=== PATIENT | female | born 1950 | race Caucasian/White ===

== ENCOUNTER 2020-05-06 09:59 | Observation (INO) | payer BC ==
--- NOTE | 2020-05-06 10:03 | PDOC ---
History of Present Illness - General Chief Complaint: Shortness of Breath Stated Complaint: SHORT OF BREATH Time Seen by Provider: 05/06/20 10:01 - History of Present Illness Initial Comments: 05/06/20 10:05 69yo female with pmhx of hypertension, dm, and hld presents ambulatory from Dr. Ferro office for eval of reyna. Pt states she has felt depression despite citalopram since November when her had a cva. States over the past 2 months she has felt increasing fatigue, reyna, depression and episodes of anxiety/panic attacks. Pt states on Wednesday her was at [facility] for a cardiac cath/stent placement and when she was walking to the [facility] she had to stop numerous times to catch her breath and sit down because of sob and fatigue. States she did feel a "twinge" of chest pressure during the walk and has experienced that when she goes up stairs. States on Wednesday she did become clammy with the REYNA. Pt denies leg swelling or calf cramping. Pt with pulse ox 86-97% on RA during exam. Pt denies abd pain. No n/v/d. States she has had a dry cough, but thinks it is secondary to allergies. States she has been q Keraderm, but has seen her daughter who recently travelled to [place] and also works for [employer]- however her daughter does not have covid symptoms. Pt states she saw her PMD this am for the REYNA who sent her to the ER for further eval. States she does not follow with cards, but requests Dr. Danielle as cards (he is her husbands cards). PMHx: HTN, obesity, hld, dm, depression/anxiety, asthma/rad Pshx: L knee sx, L inguinal hernia repair All: barbiturates Past History - Medical History Allergies/Adverse Reactions: Allergies Allergy/AdvReac Type Severity Reaction Status Date / Time Barbiturates Allergy Verified 05/06/20 11:53 Home Medications: Ambulatory Orders Atorvastatin Ca [Lipitor] 10 mg PO DAILY 05/06/20 Citalopram Hydrobromide [Citalopram HBr] 10 mg PO DAILY 05/06/20 Anemia: No Asthma: No (REACTIVE AIRWAY-USES INHALER WHEN SHE HAS COLD) Cancer: No Cardiac Disorders: No CVA: No COPD: No CHF: No Dementia: No Diabetes: No GI Disorders: No Disorders: No HTN: Yes Hypercholesterolemia: Yes Liver Disease: No Psychiatric Problems: Yes (DEPRESSION/PANIC ATTACKS) Seizures: No Thyroid Disease: No - Surgical History Abdominal Surgery: Yes (LEFT INGUINAL HERNIA REPAIR 1998) Appendectomy: No Cardiac Surgery: No Cholecystectomy: No Lung Surgery: No Neurologic Surgery: No Orthopedic Surgery: No - Psycho-Social/Smoking History Smoking History: Former smoker Have you smoked in the past 12 months: No Number of Cigarettes Smoked Daily: 10 If you are a former smoker, when did you quit?: 1970S Review of Systems - Review of Systems Able to Perform ROS?: Yes Is the patient limited Macedonian proficient: No Constitutional: Yes: Weakness. No: Chills, Fever, Night Sweats, Unintentional Wgt. Loss HEENTM: No: Nose Congestion, Throat Pain Respiratory: Yes: Cough, Shortness of Breath, SOB with Exertion. No: Wheezing, Productive cough Cardiac (ROS): Yes: Chest Pain. No: Edema, Lightheadedness, Palpitations, Syncope ABD/GI: No: Diarrhea, Nausea, Vomiting, Abdominal cramping : No: Burning Musculoskeletal: No: Back Pain Integumentary: No: Rash Neurological: No: Headache, Numbness, Paresthesia, Tingling, Weakness Psychiatric: Yes: Anxiety, Depression, Stressors All Other Systems: Reviewed and Negative *Physical Exam - Vital Signs 05/06/20 11:58 Selected Entries 05/06/20 05/06/20 10:45 11:00 Pulse Rate 62 Respiratory 14 Rate Respiratory Non-Labored Effort Blood Pressure 144/80 [Right Arm] Blood Pressure Supine Position [Right Arm] O2 Sat by Pulse 100 Oximetry (%) - Physical Exam General Appearance: Yes: Nourished, Appropriately Dressed, Mild Distress (mild coversational dyspnea) HEENT: positive: EOMI, Normal Voice Neck: positive: Supple Respiratory/Chest: positive: Lungs Clear, Normal Breath Sounds, Respiratory Distress (mild conversational dyspnea). negative: Chest Tender Cardiovascular: positive: Regular Rhythm, Regular Rate, S1, S2. negative: Edema Gastrointestinal/Abdominal: positive: Soft. negative: Guarding, Rebound, Tenderness Musculoskeletal: positive: Normal Inspection. negative: Decreased Range of Motion Extremity: positive: Normal Capillary Refill, Normal Inspection, Normal Range of Motion. negative: Pedal Edema, Swelling, Calf Tenderness Integumentary: positive: Normal Color, Dry, Warm Neurologic: positive: Fully Oriented, Alert, Normal Response, Other (anxious appearing) Heart Score/ECG Review - ECG Intrepretation Comment:: 05/06/20 10:35 sinus at 62, nl axis, pacs, nl interval, no acute st/t wave findings ED Treatment Course - LABORATORY CBC & Chemistry Diagram: 05/06/20 10:50 05/06/20 11:00 Medical Decision Making - Medical Decision Making 05/06/20 10:36 a/p: 69yo female with reyna/episodes of chest discomfort -given hx of dm, htn, hld concern for ACS -no fevers, nonproductive cough, less suspicion for pna or covid -will send covid swab given daughters contact -will send labs, place on 2L nc for comfort and O2 sat >94% -ekg, cxr -monitoring specialist -will place consult to Dr. Danielle -pt will need obs vs admission for further eval 05/06/20 11:58 trop neg cxr shows elevated L hemidiaphragm, cannot r/o superimposed infiltrates will order ct chest 05/06/20 12:23 pt updated microblog sent to [facility] for admission 05/06/20 12:24 echo reviewed normal ef, impaired relaxation on echo normal rv 05/06/20 12:27 case discussed with Mirlande Hi who accepts pt to service Discharge - Discharge Information Problems reviewed: Yes Clinical Impression/Diagnosis: Dyspnea on exertion Condition: Fair - Admission Yes - Follow up/Referral Referrals: Gino Ferro MD [Primary Care Provider] - - Patient Discharge Instructions - Post Discharge Activity
--- NOTE | 2020-05-06 11:16 | EKG ---
Test Reason : Blood Pressure : / mmHG Vent. Rate : 062 BPM Atrial Rate : 062 BPM P-R Int : 170 ms QRS Dur : 090 ms QT Int : 458 ms P-R-T Axes : 044 003 070 degrees QTc Int : 464 ms SINUS RHYTHM WITH PREMATURE ATRIAL COMPLEXES OTHERWISE NORMAL ECG NO PREVIOUS ECGS AVAILABLE Confirmed by YIN TRIPP MD ([id number]) on 05/06/2020 11:15:26 AM Referred By: ROSE MARIE MEJIA Confirmed By:YIN TRIPP MD
[2020-05-06 11:39] LABS: BASO % 1.2 % (0-2.0); EOS % 4.4 % (0-4.5); HEMOGLOBIN 12.1 GM/dl (10.7-15.3); LYMPH % 23.3 % (8-40); MCH 27.9 pg (25.7-33.7); MCHC 33.4 g/dl (32.0-36.0); MEAN CELL VOLUME 83.5 fl (80-96); MEAN PLT VOLUME 8.5 fl (7.5-11.1); MONO % 5.3 % (3.8-10.2); NEUT % 65.8 % (42.8-82.8); PLATELET COUNT 251 K/MM3 (134-434); RBC 4.32 M/mm3 (3.60-5.2); RDW 13.4 % (11.6-15.6); WHITE BLOOD COUNT 5.6 K/mm3 (4.0-10.8)
[2020-05-06 11:44] LABS: ACTIVATED PTT 27.2 SECONDS (25.2-36.5)
[2020-05-06 11:46] LABS: BILIRUBIN,TOTAL 0.6 mg/dl (0.2-1); CALCIUM 8.8 mg/dl (8.5-10); CREATININE 0.8 mg/dl (0.55-1.3); POTASSIUM 3.1 mmol/L (3.5-5.1)
[2020-05-06 11:49] LABS: INR 1.15 (0.82-1.09); PROTHROMBIN TIME (PATIENT) 12.8 SEC (10.2-13.0)
[2020-05-06 12:13] LABS: VENOUS BASE EXCESS 4.3 mmol/L (-2-2); VENOUS O2 SATURATION 53.6 % (70-80); VENOUS PCO2 48.3 mmHg (38-52); VENOUS PH 7.409 (7.310-7.410)
--- NOTE | 2020-05-06 12:14 | ECHO ---
Name: TIMMINS, FRANK Exam:Adult Echocardiogram Study Date: 05/06/2020 11:12 AM Age: 69 yrs Reason For Study: CHEST HEAVINESS Height: 64 in Weight: 201 lb BSA: 2.0 m2 Doppler Measurements & Calculations MV E max brooke: 111.8 cm/sec MV A max brooke: 150.0 cm/sec MV dec slope: 537.9 cm/sec2 MV E/A: 0.75 Ao V2 max: 157.5 cm/sec LV V1 max P.9 mmHg Ao max P.9 mmHg LV V1 max: 68.4 cm/sec PA V2 max: 100.8 cm/sec PA max P.1 mmHg Procedure Study Quality: Technically suboptimal. Left Ventricle The left ventricular size, thickness and function are normal. The left ventricular ejection fraction is normal. Ejection Fraction = 55-60%. The transmitral spectral Doppler flow pattern is suggestive of im paired LV relaxation. Right Ventricle The right ventricle is normal in size and function. Atria Normal left and right atrial size and function. Mitral Valve The mitral valve is grossly normal. There is no mitral regurgitation noted. Tricuspid Valve The tricuspid valve is not well visualized, but is grossly normal. No tricuspid regurgitation. Aortic Valve The aortic valve is normal in structure and function. Pulmonic Valve The pulmonic valve is not well visualized. Great Vessels The aortic root is not well visualized. Pericardium/Pleura There is no pericardial effusion. Interpretation Summary LV: Normal size and systolic function,EF 55-60%, impaired relaxation RV: Normal No significany valvular dysfunction. Aminata Townsend 05/06/2020 12:13 PM
[2020-05-06 12:19] LABS: N-TERMINAL BNP 83.8 pg/ml (5-125)
[2020-05-06] MEDS ORDERED: ASPIRIN 81 MG CHEWABLE TABLETS PO ONE (12:24)
[2020-05-06] MEDS ORDERED: ASPIRIN 81 MG CHEWABLE TABLETS ONE (12:44)
[2020-05-06 13:06] LABS: EPITHELIAL CELLS RARE /hpf
--- NOTE | 2020-05-06 13:19 | HP ---
CHIEF COMPLAINT: Shortness of breath PCP: Dr. Malhotra Cardiology: Dr. Danielle HISTORY OF PRESENT ILLNESS: 69 year-old female with a PMH significant for HTN, HLD, reactive airway disease, and depression/anxiety. Patient presented to the ED for evaluation of worsening fatigue, SOB, and RUIZ. She has been under increased stress since November 2019 when her suffered a CVA. Over the past 2 months she has felt increasing fatigue, RUIZ, depression and panic attacks. Over the past week, however, the symptoms have progressed. She has been unable to walk more than a few steps without becoming SOB and having to sit down. She went for a walk with her daughter and had to be driven home. Over the past week she has experienced chest tightness and clamminess on exertion. She denies orthopnea, paroxysmal nocturnal dyspnea, lower extremity edema. ER course was notable for: (1) K 3.1 Recent Travel: Travels frequently between home and [employer] [place], most recently last weekend PAST MEDICAL HISTORY: Hypertension Hyperlipidemia Reactive airway disease Depression/anxiety PAST SURGICAL HISTORY: Inguinal hernia repair 1998 Social History: lives with and 24 year-old daughter who works in [employer] every day Smoking: quit 50 years ago Alcohol: occasional Drugs: no Allergies Barbiturates Allergy (Verified 05/06/20 11:53) FAMILY HX OF P[place]RIA HOME MEDICATIONS: Home Medications Medication Instructions Recorded Atorvastatin Ca [Lipitor] 10 mg PO DAILY 05/06/20 Citalopram Hydrobromide 10 mg PO DAILY 05/06/20 [Citalopram HBr] REVIEW OF SYSTEMS CONSTITUTIONAL: Absent: fever, chills, diaphoresis, generalized weakness, malaise, loss of appetite, weight change HEENT: Absent: rhinorrhea, nasal congestion, throat pain, throat swelling, difficulty swallowing, mouth swelling, ear pain, eye pain, visual changes CARDIOVASCULAR: Absent: chest pain, syncope, palpitations, irregular heart rate, lightheadedness, peripheral edema RESPIRATORY: Absent: cough, shortness of breath, dyspnea with exertion, orthopnea, wheezing, stridor, hemoptysis GASTROINTESTINAL: Absent: abdominal pain, abdominal distension, nausea, vomiting, diarrhea, constipation, melena, hematochezia GENITOURINARY: Absent: dysuria, frequency, urgency, hesitancy, hematuria, flank pain, genital pain MUSCULOSKELETAL: Absent: myalgia, arthralgia, joint swelling, back pain, neck pain SKIN: Absent: rash, itching, pallor HEMATOLOGIC/IMMUNOLOGIC: Absent: easy bleeding, easy bruising, lymphadenopathy, frequent infections ENDOCRINE: Absent: unexplained weight gain, unexplained weight loss, heat intolerance, cold intolerance NEUROLOGIC: Absent: headache, focal weakness or paresthesias, dizziness, unsteady gait, seizure, mental status changes, bladder or bowel incontinence PSYCHIATRIC: Absent: anxiety, depression, suicidal or homicidal ideation, hallucinations. PHYSICAL EXAMINATION Vital Signs - 24 hr 05/06/20 05/06/20 05/06/20 10:00 10:45 11:00 Temperature 98.5 F Pulse Rate 62 62 62 Pulse Rate [ 66 Apical] Respiratory 15 14 Rate Blood Pressure 153/83 Blood Pressure 144/80 [Right Arm] O2 Sat by Pulse 94 L 100 99 Oximetry (%) 05/06/20 05/06/20 11:45 12:30 Temperature Pulse Rate 62 Pulse Rate [ 55 L Apical] Respiratory 14 Rate Blood Pressure Blood Pressure 150/76 [Right Arm] O2 Sat by Pulse 98 98 Oximetry (%) GENERAL: Awake, alert, and fully oriented, in no acute distress. HEAD: Normal with no signs of trauma. EYES: Pupils equal, round and reactive to light, extraocular movements intact, sclera anicteric, conjunctiva clear. No lid lag. EARS, NOSE, THROAT: Ears normal, nares patent, oropharynx clear without exudates. Moist mucous membranes. NECK: Normal range of motion, supple without lymphadenopathy, JVD, or masses. LUNGS: Breath sounds equal, clear to auscultation bilaterally. No wheezes, and no crackles. No accessory muscle use. HEART: Regular rate and rhythm, normal S1 and S2 without murmur, rub or gallop. ABDOMEN: Soft, nontender, not distended, normoactive bowel sounds, no guarding, no rebound, no masses. No hepatomegaly or splenomegaly. MUSCULOSKELETAL: Normal range of motion at all joints. No bony deformities or tenderness. No CVA tenderness. UPPER EXTREMITIES: 2+ pulses, warm, well-perfused. No cyanosis. No clubbing. No peripheral edema. LOWER EXTREMITIES: 2+ pulses, warm, well-perfused. No calf tenderness. No peripheral edema. NEUROLOGICAL: Cranial nerves II-XII intact. Normal speech. Normal gait. PSYCHIATRIC: Cooperative. Good eye contact. Appropriate mood and affect. SKIN: Warm, dry, normal turgor, no rashes or lesions noted, normal capillary refill. Laboratory Results - last 24 hr 05/06/20 05/06/20 05/06/20 10:50 10:50 10:50 WBC 5.6 RBC 4.32 Hgb 12.1 Hct 36.0 MCV 83.5 MCH 27.9 MCHC 33.4 RDW 13.4 Plt Count 251 MPV 8.5 Absolute Neuts (auto) 3.7 Neutrophils % 65.8 Lymphocytes % 23.3 Monocytes % 5.3 Eosinophils % 4.4 Basophils % 1.2 PT with INR 12.8 INR 1.15 PTT (Actin FS) 27.2 VBG pH POC VBG pCO2 POC VBG pO2 VBG HCO3 VBG O2 Sat (Sonja) VBG Base Excess Sodium Potassium Chloride Carbon Dioxide Anion Gap BUN Creatinine Est GFR (CKD-EPI)AfAm Est GFR (CKD-EPI)NonAf Random Glucose Lactic Acid Calcium Magnesium Total Bilirubin AST ALT Alkaline Phosphatase Creatine Kinase Troponin I < 0.03 B-Natriuretic Peptide Total Protein Albumin TSH Urine Color Urine Appearance Urine pH Urine Protein Urine Glucose (UA) Urine Ketones Urine Blood Urine Nitrite Urine Bilirubin Urine Urobilinogen Ur Leukocyte Esterase Urine RBC Urine WBC Ur Transition Epith Cell Urine Bacteria 05/06/20 05/06/20 05/06/20 11:00 11:00 11:00 WBC RBC Hgb Hct MCV MCH MCHC RDW Plt Count MPV Absolute Neuts (auto) Neutrophils % Lymphocytes % Monocytes % Eosinophils % Basophils % PT with INR INR PTT (Actin FS) VBG pH 7.409 POC VBG pCO2 48.3 POC VBG pO2 28.5 VBG HCO3 29.9 H VBG O2 Sat (Sonja) 53.6 L VBG Base Excess 4.3 H Sodium 137 Potassium 3.1 L Chloride 100 Carbon Dioxide 29 Anion Gap 8 BUN 22.0 H Creatinine 0.8 Est GFR (CKD-EPI)AfAm 87.18 Est GFR (CKD-EPI)NonAf 75.22 Random Glucose 94 Lactic Acid Calcium 8.8 Magnesium 2.0 Total Bilirubin 0.6 AST 16 ALT 14 Alkaline Phosphatase 48 Creatine Kinase 50 Troponin I B-Natriuretic Peptide 83.8 Total Protein 7.0 Albumin 4.0 TSH 1.63 Urine Color Yellow Urine Appearance Clear Urine pH 7.5 Urine Protein Negative Urine Glucose (UA) Negative Urine Ketones Negative Urine Blood Negative Urine Nitrite Positive H Urine Bilirubin Negative Urine Urobilinogen 0.2 Ur Leukocyte Esterase Trace H Urine RBC No Result Required. Urine WBC 2-5 Ur Transition Epith Cell Rare Urine Bacteria Moderate 05/06/20 05/06/20 11:00 11:00 WBC RBC Hgb Hct MCV MCH MCHC RDW Plt Count MPV Absolute Neuts (auto) Neutrophils % Lymphocytes % Monocytes % Eosinophils % Basophils % PT with INR INR PTT (Actin FS) VBG pH POC VBG pCO2 POC VBG pO2 VBG HCO3 VBG O2 Sat (Sonja) VBG Base Excess Sodium Potassium Chloride Carbon Dioxide Anion Gap BUN Creatinine Est GFR (CKD-EPI)AfAm Est GFR (CKD-EPI)NonAf Random Glucose Lactic Acid 1.3 Calcium Magnesium Total Bilirubin AST ALT Alkaline Phosphatase Creatine Kinase Troponin I B-Natriuretic Peptide Total Protein Albumin TSH Cancelled Urine Color Urine Appearance Urine pH Urine Protein Urine Glucose (UA) Urine Ketones Urine Blood Urine Nitrite Urine Bilirubin Urine Urobilinogen Ur Leukocyte Esterase Urine RBC Urine WBC Ur Transition Epith Cell Urine Bacteria ASSESSMENT/PLAN: 69 year-old female with a PMH significant for HTN, HLD, reactive airway disease, and depression/anxiety. Placed on observation for r/o ACS. Chest pain --troponin neg x 1, two pending --ECG: no acute ischemia --Echo: LV normal, EF 55-60%, impaired relaxation; RV normal; no significant valvular pathology --CXR: CXR: large eventration/hernia, entire stomach and small bowel loops in left lower abdomen previously seen --CT chest: CT chest: no pneumonia, no acute pathology; cholelithiasis; large mass left lobe of thyroid, seen previously in 2018; fluid collection right posterior mediastinum, 7.8cm x 3.2cm, increased since 2018, undertain etiology --ASA. Lipitor --telemetry monitoring --cardiology consult Hypertension --continue triamterene/HCTZ Reactive airway disease --stable Depression/anxiety --continue citalopram Hypomagnesemia --replete Hypokalemia --replete FEN Fluids: PO intake adequate Electrolytes: replete as indicated Nutrition: low sodium DVT prophylaxis: subq heparin Physical therapy Dispo: continues to require inpatient care. Full code. Visit type - Emergency Visit Emergency Visit: Yes ED Registration Date: 05/06/20 Care time: The patient presented to the Emergency Department on the above date and was hospitalized for further evaluation of their emergent condition. - New Patient This patient is new to me today: Yes Date on this admission: 05/07/20 - Critical Care Critical Care patient: No
--- NOTE | 2020-05-06 13:33 | CON.CARD ---
Cardiology Consult (text) - Consultation Consultation Note: cc: sob hpi: 69 f hx htn, hld, anxiety, depression, sent from pmd office for sob. Past 1-2 mos pt has noticed sob/fatigue on exertion, was worse over last few days. No orthopnea, pnd, le edema, cp, palps, dizzy loc. No hx hrt dz. pmh: per hpi psh: knee surgery social: no tob fam: no premature cad, scd ros: per hpi; all others nl meds: Home Medications Medication Instructions Recorded Atorvastatin Ca [Lipitor] 10 mg PO DAILY 05/06/20 Citalopram Hydrobromide 10 mg PO DAILY 05/06/20 [Citalopram HBr] pe: Vital Signs Period Temp Pulse Resp BP Sys/Koch Pulse Ox Last 24 Hr 98.5 F 55-68 14-15 144-153/76-83 94-100 nad no jvd rrr s1s2 no mrg cta bl nl eff aao3 no le e/c/c abd nt nd pos bs no jaundice diaphoresis pos dp pt no carotid bruits Laboratory Last Values WBC 5.6 K/mm3 (4.0-10.8) 05/06/20 10:50 RBC 4.32 M/mm3 (3.60-5.2) 05/06/20 10:50 Hgb 12.1 GM/dl (10.7-15.3) 05/06/20 10:50 Hct 36.0 % (32.4-45.2) 05/06/20 10:50 MCV 83.5 fl (80-96) 05/06/20 10:50 MCH 27.9 pg (25.7-33.7) 05/06/20 10:50 MCHC 33.4 g/dl (32.0-36.0) 05/06/20 10:50 RDW 13.4 % (11.6-15.6) 05/06/20 10:50 Plt Count 251 K/MM3 (134-434) 05/06/20 10:50 MPV 8.5 fl (7.5-11.1) 05/06/20 10:50 Absolute Neuts (auto) 3.7 K/mm3 05/06/20 10:50 Neutrophils % 65.8 % (42.8-82.8) 05/06/20 10:50 Lymphocytes % 23.3 % (8-40) 05/06/20 10:50 Monocytes % 5.3 % (3.8-10.2) 05/06/20 10:50 Eosinophils % 4.4 % (0-4.5) 05/06/20 10:50 Basophils % 1.2 % (0-2.0) 05/06/20 10:50 PT with INR 12.8 SEC (10.2-13.0) 05/06/20 10:50 INR 1.15 (0.82-1.09) 05/06/20 10:50 PTT (Actin FS) 27.2 SECONDS (25.2-36.5) 05/06/20 10:50 VBG pH 7.409 (7.310-7.410) 05/06/20 11:00 POC VBG pCO2 48.3 mmHg (38-52) 05/06/20 11:00 POC VBG pO2 28.5 mmHg (28-48) 05/06/20 11:00 VBG HCO3 29.9 mmol/L (23-29) H 05/06/20 11:00 VBG O2 Sat (Sonja) 53.6 % (70-80) L 05/06/20 11:00 VBG Base Excess 4.3 mmol/L (-2-2) H 05/06/20 11:00 Sodium 137 mmol/L (136-145) 05/06/20 11:00 Potassium 3.1 mmol/L (3.5-5.1) L 05/06/20 11:00 Chloride 100 mmol/L (98-107) 05/06/20 11:00 Carbon Dioxide 29 mmol/L (21-32) 05/06/20 11:00 Anion Gap 8 MMOL/L (8-16) 05/06/20 11:00 BUN 22.0 mg/dl (7-18) H 05/06/20 11:00 Creatinine 0.8 mg/dl (0.55-1.3) 05/06/20 11:00 Est GFR (CKD-EPI)AfAm 87.18 05/06/20 11:00 Est GFR (CKD-EPI)NonAf 75.22 05/06/20 11:00 Random Glucose 94 mg/dl (74-106) 05/06/20 11:00 Lactic Acid 1.3 mmol/L (0.4-2.0) 05/06/20 11:00 Calcium 8.8 mg/dl (8.5-10) 05/06/20 11:00 Magnesium 2.0 mg/dL (1.8-2.4) 05/06/20 11:00 Total Bilirubin 0.6 mg/dl (0.2-1) 05/06/20 11:00 AST 16 U/L (15-37) 05/06/20 11:00 ALT 14 U/L (13-61) 05/06/20 11:00 Alkaline Phosphatase 48 U/L (45-117) 05/06/20 11:00 Creatine Kinase 50 U/L (26-192) 05/06/20 11:00 Troponin I < 0.03 ng/ml (0.00-0.05) 05/06/20 10:50 B-Natriuretic Peptide 83.8 pg/ml (5-125) 05/06/20 11:00 Total Protein 7.0 g/dl (6.4-8.2) 05/06/20 11:00 Albumin 4.0 g/dl (3.4-5.0) 05/06/20 11:00 TSH 1.63 uIU/ml (0.358-3.74) 05/06/20 11:00 TSH Cancelled 05/06/20 11:00 Urine Color Yellow 05/06/20 11:00 Urine Appearance Clear 05/06/20 11:00 Urine pH 7.5 (4.5-8) 05/06/20 11:00 Urine Protein Negative (NEGATIVE) 05/06/20 11:00 Urine Glucose (UA) Negative (NEGATIVE) 05/06/20 11:00 Urine Ketones Negative (NEGATIVE) 05/06/20 11:00 Urine Blood Negative (NEGATIVE) 05/06/20 11:00 Urine Nitrite Positive (NEGATIVE) H 05/06/20 11:00 Urine Bilirubin Negative (NEGATIVE) 05/06/20 11:00 Urine Urobilinogen 0.2 (0.2-1.0) 05/06/20 11:00 Ur Leukocyte Esterase Trace (NEGATIVE) H 05/06/20 11:00 Urine RBC No Result Required. 05/06/20 11:00 Urine WBC 2-5 (NEGATIVE) 05/06/20 11:00 Ur Transition Epith Cell Rare /hpf 05/06/20 11:00 Urine Bacteria Moderate /hpf (NEGATIVE) 05/06/20 11:00 ecg: sr, pac, nl intervals, no ischemic changes cxr: no chf echo 04/2020: nl lv/rv, no sig valve path a/p: 69 f hx htn, hld, anxiety, depression, sent from pmd office for sob. sob, reyna: -no signs chf, acs -bnp wnl -ecg and echo unremarkable -continue john on tele -f/u ct chest to r/o other lung pathology. r/o covid. -will plan for nuclear stress test tomorrow as her symptoms could be anginal equivalent, if benign then no further cardiac testing needed at this time. hld: -cont statin htn: -stable, monitor
[2020-05-06] MEDS ORDERED: MAGNESIUM OXIDE 400 MG TABLET (FP) PO ONE (15:48)
[2020-05-06] MEDS: POTASSIUM CHLORIDE TABS 20 MEQ TABLET.ER (FP) PO SCH ×2 (17:39→22:18)
[2020-05-06 18:01] VITALS: BMI 35.7
[2020-05-06] MEDS: HEPARIN NA (PORCINE) 5,000 UNITS/ML 1ML VIAL SQ SCH (22:18)
[2020-05-07] MEDS: HEPARIN NA (PORCINE) 5,000 UNITS/ML 1ML VIAL SQ SCH ×3 (06:54→21:19)
[2020-05-07 08:12] LABS: BASO % 0.7 % (0-2.0); EOS % 5.9 % (0-4.5); HEMATOCRIT 35.9 % (32.4-45.2); HEMOGLOBIN 11.9 GM/dl (10.7-15.3); LYMPH % 33.9 % (8-40); MCH 27.7 pg (25.7-33.7); MEAN PLT VOLUME 8.5 fl (7.5-11.1); MONO % 6.4 % (3.8-10.2); NEUT % 53.1 % (42.8-82.8); PLATELET COUNT 233 K/MM3 (134-434); RBC 4.28 M/mm3 (3.60-5.2); RDW 13.5 % (11.6-15.6)
[2020-05-07 08:26] LABS: ALBUMIN 3.5 g/dl (3.4-5.0); BILIRUBIN,TOTAL 0.7 mg/dl (0.2-1); CALCIUM 8.5 mg/dl (8.5-10); CREATININE 0.7 mg/dl (0.55-1.3); MAGNESIUM 2.1 mg/dL (1.8-2.4); POTASSIUM 3.6 mmol/L (3.5-5.1); TOT PROT 6.1 g/dl (6.4-8.2)
[2020-05-07] MEDS ORDERED: PT OWN MED DRAWER 7, Y5N ONE (09:53)
[2020-05-07] MEDS ORDERED: TRIAMTERENE 50 MG CAPSULE PO SCH (10:00)
--- NOTE | 2020-05-07 10:15 | PN ---
Physical Exam: SUBJECTIVE: Patient seen and examined oob to chair. Feels well. Denies chest pain, palpitations. Has been ambulating around the room with SOB or RUIZ. OBJECTIVE: Vital Signs Period Temp Pulse Resp BP Sys/Koch Pulse Ox Last 24 Hr 97.7 F-98.2 F 51-89 13-18 117-157/58-80 95-100 GENERAL: The patient is awake, alert, and fully oriented, in no acute distress. LUNGS: Breath sounds equal, clear to auscultation bilaterally, no wheezes, no crackles, no accessory muscle use. HEART: Regular rate and rhythm, S1, S2 ABDOMEN: Soft, nontender, nondistended, normoactive bowel sounds EXTREMITIES: 2+ pulses, warm, well-perfused, no edema. NEUROLOGICAL: Cranial nerves II through XII grossly intact. Normal speech Laboratory Results - last 24 hr 05/06/20 05/06/20 05/06/20 10:50 10:50 10:50 WBC 5.6 RBC 4.32 Hgb 12.1 Hct 36.0 MCV 83.5 MCH 27.9 MCHC 33.4 RDW 13.4 Plt Count 251 MPV 8.5 Absolute Neuts (auto) 3.7 Neutrophils % 65.8 Lymphocytes % 23.3 Monocytes % 5.3 Eosinophils % 4.4 Basophils % 1.2 PT with INR 12.8 INR 1.15 PTT (Actin FS) 27.2 VBG pH POC VBG pCO2 POC VBG pO2 VBG HCO3 VBG O2 Sat (Sonja) VBG Base Excess Sodium Potassium Chloride Carbon Dioxide Anion Gap BUN Creatinine Est GFR (CKD-EPI)AfAm Est GFR (CKD-EPI)NonAf Random Glucose Lactic Acid Calcium Magnesium Total Bilirubin AST ALT Alkaline Phosphatase Creatine Kinase Troponin I < 0.03 B-Natriuretic Peptide Total Protein Albumin Triglycerides Cholesterol Total LDL Cholesterol HDL Cholesterol TSH Urine Color Urine Appearance Urine pH Urine Protein Urine Glucose (UA) Urine Ketones Urine Blood Urine Nitrite Urine Bilirubin Urine Urobilinogen Ur Leukocyte Esterase Urine RBC Urine WBC Ur Transition Epith Cell Urine Bacteria 05/06/20 05/06/20 05/06/20 11:00 11:00 11:00 WBC RBC Hgb Hct MCV MCH MCHC RDW Plt Count MPV Absolute Neuts (auto) Neutrophils % Lymphocytes % Monocytes % Eosinophils % Basophils % PT with INR INR PTT (Actin FS) VBG pH 7.409 POC VBG pCO2 48.3 POC VBG pO2 28.5 VBG HCO3 29.9 H VBG O2 Sat (Sonja) 53.6 L VBG Base Excess 4.3 H Sodium 137 Potassium 3.1 L Chloride 100 Carbon Dioxide 29 Anion Gap 8 BUN 22.0 H Creatinine 0.8 Est GFR (CKD-EPI)AfAm 87.18 Est GFR (CKD-EPI)NonAf 75.22 Random Glucose 94 Lactic Acid Calcium 8.8 Magnesium 2.0 Total Bilirubin 0.6 AST 16 ALT 14 Alkaline Phosphatase 48 Creatine Kinase 50 Troponin I B-Natriuretic Peptide 83.8 Total Protein 7.0 Albumin 4.0 Triglycerides Cholesterol Total LDL Cholesterol HDL Cholesterol TSH 1.63 Urine Color Yellow Urine Appearance Clear Urine pH 7.5 Urine Protein Negative Urine Glucose (UA) Negative Urine Ketones Negative Urine Blood Negative Urine Nitrite Positive H Urine Bilirubin Negative Urine Urobilinogen 0.2 Ur Leukocyte Esterase Trace H Urine RBC No Result Required. Urine WBC 2-5 Ur Transition Epith Cell Rare Urine Bacteria Moderate 05/06/20 05/06/20 05/06/20 11:00 11:00 20:36 WBC RBC Hgb Hct MCV MCH MCHC RDW Plt Count MPV Absolute Neuts (auto) Neutrophils % Lymphocytes % Monocytes % Eosinophils % Basophils % PT with INR INR PTT (Actin FS) VBG pH POC VBG pCO2 POC VBG pO2 VBG HCO3 VBG O2 Sat (Sonja) VBG Base Excess Sodium Potassium Chloride Carbon Dioxide Anion Gap BUN Creatinine Est GFR (CKD-EPI)AfAm Est GFR (CKD-EPI)NonAf Random Glucose Lactic Acid 1.3 Calcium Magnesium Total Bilirubin AST ALT Alkaline Phosphatase Creatine Kinase Troponin I < 0.03 B-Natriuretic Peptide Total Protein Albumin Triglycerides Cholesterol Total LDL Cholesterol HDL Cholesterol TSH Cancelled Urine Color Urine Appearance Urine pH Urine Protein Urine Glucose (UA) Urine Ketones Urine Blood Urine Nitrite Urine Bilirubin Urine Urobilinogen Ur Leukocyte Esterase Urine RBC Urine WBC Ur Transition Epith Cell Urine Bacteria 05/07/20 05/07/20 05/07/20 03:00 03:00 07:24 WBC 5.0 RBC 4.28 Hgb 11.9 Hct 35.9 MCV 84.0 MCH 27.7 MCHC 33.0 RDW 13.5 Plt Count 233 MPV 8.5 Absolute Neuts (auto) 2.7 Neutrophils % 53.1 Lymphocytes % 33.9 Monocytes % 6.4 Eosinophils % 5.9 H Basophils % 0.7 PT with INR INR PTT (Actin FS) VBG pH POC VBG pCO2 POC VBG pO2 VBG HCO3 VBG O2 Sat (Sonja) VBG Base Excess Sodium Potassium Chloride Carbon Dioxide Anion Gap BUN Creatinine Est GFR (CKD-EPI)AfAm Est GFR (CKD-EPI)NonAf Random Glucose Lactic Acid Calcium Magnesium Total Bilirubin AST ALT Alkaline Phosphatase Creatine Kinase 46 Troponin I Cancelled < 0.02 B-Natriuretic Peptide Total Protein Albumin Triglycerides Cholesterol Total LDL Cholesterol HDL Cholesterol TSH Urine Color Urine Appearance Urine pH Urine Protein Urine Glucose (UA) Urine Ketones Urine Blood Urine Nitrite Urine Bilirubin Urine Urobilinogen Ur Leukocyte Esterase Urine RBC Urine WBC Ur Transition Epith Cell Urine Bacteria 05/07/20 07:24 WBC RBC Hgb Hct MCV MCH MCHC RDW Plt Count MPV Absolute Neuts (auto) Neutrophils % Lymphocytes % Monocytes % Eosinophils % Basophils % PT with INR INR PTT (Actin FS) VBG pH POC VBG pCO2 POC VBG pO2 VBG HCO3 VBG O2 Sat (Sonja) VBG Base Excess Sodium 141 Potassium 3.6 Chloride 104 Carbon Dioxide 30 Anion Gap 7 L BUN 16.0 Creatinine 0.7 Est GFR (CKD-EPI)AfAm 102.46 Est GFR (CKD-EPI)NonAf 88.40 Random Glucose 95 Lactic Acid Calcium 8.5 Magnesium 2.1 Total Bilirubin 0.7 AST 13 L ALT 11 L Alkaline Phosphatase 42 L Creatine Kinase Troponin I B-Natriuretic Peptide Total Protein 6.1 L Albumin 3.5 Triglycerides 91 Cholesterol 134 Total LDL Cholesterol 66 HDL Cholesterol 50 TSH 1.71 Urine Color Urine Appearance Urine pH Urine Protein Urine Glucose (UA) Urine Ketones Urine Blood Urine Nitrite Urine Bilirubin Urine Urobilinogen Ur Leukocyte Esterase Urine RBC Urine WBC Ur Transition Epith Cell Urine Bacteria Active Medications Generic Name Dose Route Start Last Admin Trade Name Freq PRN Reason Stop Dose Admin Aspirin 81 mg 05/07/20 10:00 Ecotrin - PO DAILY [facility] Atorvastatin Calcium 10 mg 05/07/20 10:00 Lipitor - PO DAILY [facility] Citalopram Hydrobromide 10 mg 05/07/20 10:00 Celexa - PO DAILY [facility] Heparin Sodium (Porcine) 5,000 unit 05/06/20 22:00 05/07/20 06:54 Heparin - SQ Not Given TID [facility] Ceftriaxone Sodium 1 gm/ 50 mls @ 100 mls/hr 05/07/20 10:15 Dextrose IVPB DAILY [facility] Protocol Triamterene/HCTZ 1 cap 05/07/20 10:00 Dyazide 25/37.5mg PO DAILY [facility] ASSESSMENT/PLAN 69 year-old female with a PMH significant for HTN, HLD, reactive airway disease, and depression/anxiety. Placed on observation for r/o ACS. Chest pain --troponin neg x 3 --Echo: LV normal, EF 55-60%, impaired relaxation; RV normal; no significant valvular pathology --CXR: CXR: large eventration/hernia, entire stomach and small bowel loops in left lower abdomen previously seen --CT chest: CT chest: no pneumonia, no acute pathology; cholelithiasis; large mass left lobe of thyroid, seen previously in 2018; fluid collection right posterior mediastinum, 7.8cm x 3.2cm, increased since 2018, undertain etiology --ASA. Lipitor --telemetry monitoring --seen and evaluated by cardiology: no signs of CHF, ACS, BNP wnl; continue to KULDEEP; plan for nuclear stress as soon as COVID status established Hypertension --continue triamterene/HCTZ Reactive airway disease --stable Depression/anxiety --continue citalopram Hypomagnesemia --replete Hypokalemia --replete COVID --05/06 swab pending FEN Fluids: PO intake adequate Electrolytes: replete as indicated Nutrition: low sodium DVT prophylaxis: subq heparin Physical therapy Dispo: continues to require telemetry observation; nuclear stress when COVID status established; full code. Visit type - Emergency Visit Emergency Visit: Yes ED Registration Date: 05/06/20 Care time: The patient presented to the Emergency Department on the above date and was hospitalized for further evaluation of their emergent condition. - New Patient This patient is new to me today: No - Critical Care Critical Care patient: No
[2020-05-07] MEDS: ASPIRIN COATED 81 MG TABLET.EC PO SCH (10:25)
[2020-05-07] MEDS: CITALOPRAM HYDROBROMIDE 10 MG TABLET PO SCH (10:25)
[2020-05-07] MEDS: ATORVASTATIN CA 10 MG TABLET (FP) PO SCH (10:25)
[2020-05-07] MEDS: TRIAMTERENE AND HCTZ - 37.5 MG/25 MG CAPSULE PO SCH (10:25)
--- NOTE | 2020-05-07 10:27 | PN ---
Progress Note (short form) - Note Progress Note: cc: sob hpi: no chest pain, palps, dizziness, dyspnea Current Medications Generic Name Dose Route Start Last Admin Trade Name Marisa PRN Reason Stop Dose Admin Aspirin 81 mg 05/07/20 10:00 Ecotrin - PO DAILY [facility] Atorvastatin Calcium 10 mg 05/07/20 10:00 Lipitor - PO DAILY [facility] Citalopram Hydrobromide 10 mg 05/07/20 10:00 Celexa - PO DAILY [facility] Heparin Sodium (Porcine) 5,000 unit 05/06/20 22:00 05/07/20 06:54 Heparin - SQ Not Given TID [facility] Ceftriaxone Sodium 1 gm/ 50 mls @ 100 mls/hr 05/07/20 10:15 Dextrose IVPB DAILY [facility] Protocol Triamterene/HCTZ 1 cap 05/07/20 10:00 Dyazide 25/37.5mg PO DAILY [facility] Vital Signs Period Temp Pulse Resp BP Sys/Koch Pulse Ox Last 24 Hr 97.7 F-98.2 F 51-89 13-18 117-157/58-80 95-100 nad no jvd rrr s1s2 no mrg cta bl nl eff aao3 no le e/c/c abd nt nd pos bs no jaundice diaphoresis pos dp pt no carotid bruits ecg: sr, pac, nl intervals, no ischemic changes cxr: no chf echo 04/2020: nl lv/rv, no sig valve path tele: sinus lori a/p: 69 f hx htn, hld, anxiety, depression, sent from pmd office for sob. sob, reyna: -no signs chf, acs -bnp wnl -ecg and echo unremarkable -continue john on tele - r/o covid. -will plan for nuclear stress test today pending COVID testing as her symptoms could be anginal equivalent, if benign then no further cardiac testing needed at this time. hld: -cont statin htn: -stable, monitor
[2020-05-07] MEDS ORDERED: cefTRIAXone SODIUM 1 GM VIAL ONE (12:31)
[2020-05-07] MEDS ORDERED: DEXTROSE 5%-WATER - 50 ML IVPB ONE (12:32)
[2020-05-07] MEDS: CEFTRIAXONE 1 GM in DEXTROSE 5%-WATER - 50 ML IVPB SCH (12:44)
[2020-05-08] MEDS: HEPARIN NA (PORCINE) 5,000 UNITS/ML 1ML VIAL SQ SCH ×2 (06:42→21:29)
[2020-05-08] MEDS ORDERED: DEXTROSE 5%-WATER - 50 ML IVPB ONE (09:45)
[2020-05-08] MEDS ORDERED: cefTRIAXone SODIUM 1 GM VIAL ONE (09:45)
[2020-05-08] MEDS: ASPIRIN COATED 81 MG TABLET.EC PO SCH (09:52)
[2020-05-08] MEDS: ATORVASTATIN CA 10 MG TABLET (FP) PO SCH (09:52)
[2020-05-08] MEDS: CEFTRIAXONE 1 GM in DEXTROSE 5%-WATER - 50 ML IVPB SCH (10:00)
[2020-05-08] MEDS: CITALOPRAM HYDROBROMIDE 10 MG TABLET PO SCH (10:22)
--- NOTE | 2020-05-08 10:41 | PN ---
Progress Note (short form) - Note Progress Note: cc: sob hpi: no chest pain, palps, dizziness, dyspnea currently, walked in the [place] yesterday with dyspnea on exertion. Current Medications Generic Name Dose Route Start Last Admin Trade Name Marisa PRN Reason Stop Dose Admin Aspirin 81 mg 05/07/20 10:00 05/08/20 09:52 Ecotrin - PO 81 mg DAILY [facility] Administration Atorvastatin Calcium 10 mg 05/07/20 10:00 05/08/20 09:52 Lipitor - PO 10 mg DAILY [facility] Administration Citalopram Hydrobromide 10 mg 05/07/20 10:00 05/08/20 10:22 Celexa - PO 10 mg DAILY [facility] Administration Heparin Sodium (Porcine) 5,000 unit 05/06/20 22:00 05/07/20 21:19 Heparin - SQ 5,000 unit TID [facility] Administration Ceftriaxone Sodium 1 gm/ 50 mls @ 100 mls/hr 05/07/20 10:15 05/07/20 12:44 Dextrose IVPB 100 mls/hr DAILY [facility] Administration Protocol Triamterene/HCTZ 1 cap 05/07/20 10:00 05/07/20 10:25 Dyazide 25/37.5mg PO 1 cap DAILY [facility] Administration Vital Signs Period Temp Pulse Resp BP Sys/Koch Pulse Ox Last 24 Hr 97.6 F-98.9 F 49-93 18-19 145-157/57-77 95-96 nad no jvd rrr s1s2 no mrg cta bl nl eff aao3 no le e/c/c abd nt nd pos bs no jaundice diaphoresis pos dp pt no carotid bruits ecg: sr, pac, nl intervals, no ischemic changes cxr: no chf echo 04/2020: nl lv/rv, no sig valve path tele: sinus lori a/p: 69 f hx htn, hld, anxiety, depression, sent from pmd office for sob. sob, reyna: -no signs chf, acs -bnp wnl -ecg and echo unremarkable -continue john on tele - r/o covid. -will plan for nuclear stress test pending COVID testing as her symptoms could be anginal equivalent, if benign then no further cardiac testing needed at this time. hld: -cont statin htn: -stable, monitor UTI - on abx per primary
[2020-05-08] MEDS ORDERED: PT OWN MED DRAWER 7, Y5N ONE (10:43)
[2020-05-08] MEDS: TRIAMTERENE AND HCTZ - 37.5 MG/25 MG CAPSULE PO SCH (10:48)
--- NOTE | 2020-05-08 10:51 | PN ---
Physical Exam: SUBJECTIVE: Patient seen and examined at bedside. Walked with in hallway yesterday and became SOB. Last night had a "twinge" in left chest while lying in bed. OBJECTIVE: Vital Signs Period Temp Pulse Resp BP Sys/Koch Pulse Ox Last 24 Hr 97.6 F-98.9 F 49-93 18-19 145-157/57-77 95-96 GENERAL: The patient is awake, alert, and fully oriented, in no acute distress. LUNGS: Breath sounds equal, clear to auscultation bilaterally, no wheezes, no crackles, no accessory muscle use. HEART: Regular rate and rhythm, S1, S2 ABDOMEN: Soft, nontender, nondistended, normoactive bowel sounds EXTREMITIES: 2+ pulses, warm, well-perfused, no edema. NEUROLOGICAL: Cranial nerves II through XII grossly intact. Normal speech Active Medications Generic Name Dose Route Start Last Admin Trade Name Freq PRN Reason Stop Dose Admin Aspirin 81 mg 05/07/20 10:05/08/20 09:52 Ecotrin - PO 81 mg DAILY [facility] Administration Atorvastatin Calcium 10 mg 05/07/20 10:05/08/20 09:52 Lipitor - PO 10 mg DAILY [facility] Administration Citalopram Hydrobromide 10 mg 05/07/20 10:00 05/08/20 10:22 Celexa - PO 10 mg DAILY [facility] Administration Heparin Sodium (Porcine) 5,000 unit 05/06/20 22:00 05/07/20 21:19 Heparin - SQ 5,000 unit TID [facility] Administration Ceftriaxone Sodium 1 gm/ 50 mls @ 100 mls/hr 05/07/20 10:15 05/07/20 12:44 Dextrose IVPB 100 mls/hr DAILY [facility] Administration Protocol Triamterene/HCTZ 1 cap 05/07/20 10:00 05/08/20 10:48 Dyazide 25/37.5mg PO 1 cap DAILY [facility] Administration ASSESSMENT/PLAN: 69 year-old female with a PMH significant for HTN, HLD, reactive airway disease, and depression/anxiety. Placed on observation for r/o ACS. Chest pain --troponin neg x 3 --Echo: LV normal, EF 55-60%, impaired relaxation; RV normal; no significant valvular pathology --CXR: CXR: large eventration/hernia, entire stomach and small bowel loops in left lower abdomen previously seen --CT chest: CT chest: no pneumonia, no acute pathology; cholelithiasis; large mass left lobe of thyroid, seen previously in 2018; fluid collection right posterior mediastinum, 7.8cm x 3.2cm, increased since 2018, uncertain etiology --ASA, Lipitor --telemetry monitoring --seen and evaluated by cardiology: no signs of CHF, ACS, BNP wnl; continue to KULDEEP; plan for nuclear stress as soon as COVID status established Hypertension --continue triamterene/HCTZ Reactive airway disease --stable Depression/anxiety --continue citalopram Hypomagnesemia --replete Hypokalemia --replete COVID --05/06 swab pending FEN Fluids: PO intake adequate Electrolytes: replete as indicated Nutrition: low sodium DVT prophylaxis: subq heparin Physical therapy Dispo: continues to require telemetry observation; nuclear stress when COVID status established; full code. Visit type - Emergency Visit Emergency Visit: Yes ED Registration Date: 05/06/20 Care time: The patient presented to the Emergency Department on the above date and was hospitalized for further evaluation of their emergent condition. - New Patient This patient is new to me today: No - Critical Care Critical Care patient: No
--- NOTE | 2020-05-08 12:24 | EKG ---
Test Reason : Blood Pressure : / mmHG Vent. Rate : 050 BPM Atrial Rate : 050 BPM P-R Int : 160 ms QRS Dur : 092 ms QT Int : 498 ms P-R-T Axes : 019 011 041 degrees QTc Int : 454 ms SINUS BRADYCARDIA OTHERWISE NORMAL ECG WHEN COMPARED WITH ECG OF 06-MAY-2020 10:30, PREMATURE ATRIAL COMPLEXES ARE NO LONGER PRESENT Confirmed by Yanick Cardoso MD ([id number]) on 05/08/2020 12:23:58 PM Referred By: Confirmed By:Yanick Cardoso MD
[2020-05-08] MEDS ORDERED: LORazepam 0.5 MG TABLET PO ONE (12:45)
[2020-05-08] MEDS ORDERED: LOCK ITEM NR ONE (22:19)
[2020-05-09] MEDS: HEPARIN NA (PORCINE) 5,000 UNITS/ML 1ML VIAL SQ SCH ×2 (05:51→17:23)
[2020-05-09] MEDS ORDERED: cefTRIAXone SODIUM 1 GM VIAL ONE (07:48)
[2020-05-09] MEDS ORDERED: DEXTROSE 5%-WATER - 50 ML IVPB ONE (07:48)
[2020-05-09] MEDS ORDERED: PT OWN MED DRAWER 7, Y5N ONE ×2 (07:48→08:05)
[2020-05-09] MEDS: CITALOPRAM HYDROBROMIDE 10 MG TABLET PO SCH ×2 (08:10→16:56)
[2020-05-09] MEDS: TRIAMTERENE AND HCTZ - 37.5 MG/25 MG CAPSULE PO SCH ×2 (08:10→16:56)
[2020-05-09] MEDS: ATORVASTATIN CA 10 MG TABLET (FP) PO SCH ×2 (08:12→16:57)
[2020-05-09] MEDS: ASPIRIN COATED 81 MG TABLET.EC PO SCH ×2 (08:12→16:57)
[2020-05-09] MEDS: CEFTRIAXONE 1 GM in DEXTROSE 5%-WATER - 50 ML IVPB SCH ×2 (08:12→16:57)
[2020-05-09 08:14] VITALS: BP 132/60; TEMP 97.8
[2020-05-09] MEDS ORDERED: REGADENOSON 0.4 MG/5 ML PRE-FILLED SYRINGE IVPUSH ONE ×2 (10:45→11:30)
--- NOTE | 2020-05-09 12:02 | PN ---
Progress Note (short form) - Note Progress Note: cc: sob hpi: no chest pain, palps, dizziness, sob Current Medications Generic Name Dose Route Start Last Admin Trade Name Marisa PRN Reason Stop Dose Admin Aspirin 81 mg 05/07/20 10:00 05/09/20 08:12 Ecotrin - PO 81 mg DAILY [facility] Administration Atorvastatin Calcium 10 mg 05/07/20 10:00 05/09/20 08:12 Lipitor - PO 10 mg DAILY [facility] Administration Citalopram Hydrobromide 10 mg 05/07/20 10:00 05/09/20 08:10 Celexa - PO 10 mg DAILY [facility] Administration Heparin Sodium (Porcine) 5,000 unit 05/06/20 22:00 05/09/20 05:51 Heparin - SQ Not Given TID [facility] Ceftriaxone Sodium 1 gm/ 50 mls @ 100 mls/hr 05/07/20 10:15 05/09/20 08:12 Dextrose IVPB 100 mls/hr DAILY [facility] Administration Protocol Triamterene/HCTZ 1 cap 05/07/20 10:00 05/09/20 08:10 Dyazide 25/37.5mg PO 1 cap DAILY [facility] Administration Vital Signs Period Temp Pulse Resp BP Sys/Koch Pulse Ox Last 24 Hr 97.7 F-98.5 F 49-62 18-19 132-150/55-64 94-95 nad no jvd rrr s1s2 no mrg cta bl nl eff aao3 no le e/c/c abd nt nd pos bs no jaundice diaphoresis pos dp pt no carotid bruits CBC, BMP 05/07/20 07:24 05/07/20 07:24 ecg: sr, pac, nl intervals, no ischemic changes cxr: no chf echo 04/2020: nl lv/rv, no sig valve path a/p: 69 f hx htn, hld, anxiety, depression, sent from pmd office for sob. sob, reyna: -no signs chf, acs -bnp wnl -ecg and echo unremarkable -mibi today, if benign then no further cardiac testing needed at this time. hld: -cont statin htn: -stable, monitor UTI - on abx per primary
--- NOTE | 2020-05-09 14:34 | DS ---
Physical Exam: SUBJECTIVE: Patient seen and examined OBJECTIVE: Vital Signs Period Temp Pulse Resp BP Sys/Koch Pulse Ox Last 24 Hr 97.7 F-98.5 F 52-62 18-19 132-150/55-64 94-95 PHYSICAL EXAM GENERAL: The patient is awake, alert, and fully oriented, in no acute distress. LUNGS: Breath sounds equal, clear to auscultation bilaterally, no wheezes, no crackles, no accessory muscle use. HEART: Regular rate and rhythm, S1, S2 ABDOMEN: Soft, nontender, nondistended, normoactive bowel sounds EXTREMITIES: 2+ pulses, warm, well-perfused, no edema. NEUROLOGICAL: Cranial nerves II through XII grossly intact. Normal speech LABS Laboratory Results - last 24 hr 05/06/20 10:30 COVID-19 (HAIDER) Not detected CBCD WBC 5.0 K/mm3 (4.0-10.8) 05/07/20 07:24 RBC 4.28 M/mm3 (3.60-5.2) 05/07/20 07:24 Hgb 11.9 GM/dl (10.7-15.3) 05/07/20 07:24 Hct 35.9 % (32.4-45.2) 05/07/20 07:24 MCV 84.0 fl (80-96) 05/07/20 07:24 MCHC 33.0 g/dl (32.0-36.0) 05/07/20 07:24 RDW 13.5 % (11.6-15.6) 05/07/20 07:24 Plt Count 233 K/MM3 (134-434) 05/07/20 07:24 MPV 8.5 fl (7.5-11.1) 05/07/20 07:24 CMP Sodium 141 mmol/L (136-145) 05/07/20 07:24 Potassium 3.6 mmol/L (3.5-5.1) 05/07/20 07:24 Chloride 104 mmol/L (98-107) 05/07/20 07:24 Carbon Dioxide 30 mmol/L (21-32) 05/07/20 07:24 Anion Gap 7 MMOL/L (8-16) L 05/07/20 07:24 BUN 16.0 mg/dl (7-18) 05/07/20 07:24 Creatinine 0.7 mg/dl (0.55-1.3) 05/07/20 07:24 Calcium 8.5 mg/dl (8.5-10) 05/07/20 07:24 Total Bilirubin 0.7 mg/dl (0.2-1) 05/07/20 07:24 AST 13 U/L (15-37) L 05/07/20 07:24 ALT 11 U/L (13-61) L 05/07/20 07:24 Alkaline Phosphatase 42 U/L (45-117) L 05/07/20 07:24 Total Protein 6.1 g/dl (6.4-8.2) L 05/07/20 07:24 Albumin 3.5 g/dl (3.4-5.0) 05/07/20 07:24 HOSPITAL COURSE: Date of Admission:05/06/20 Date of Discharge: 05/09/20 Pre hospital course 69 year-old female with a PMH significant for HTN, HLD, reactive airway disease, and depression/anxiety. Patient presented to the ED for evaluation of worsening fatigue, SOB, and RUIZ. She has been under increased stress since November 2019 when her suffered a CVA. Over the past 2 months she has felt increasing fatigue, RUIZ, depression and panic attacks. Over the past week the symptoms have progressed. She has been unable to walk more than a few steps without becoming SOB and having to sit down. She went for a walk with her daughter and had to be driven home. Over the past week she has experienced chest tightness and clamminess on exertion. She denies orthopnea, paroxysmal nocturnal dyspnea, lower extremity edema. ER course (1) K 3.1 Subsequent hospital course 69 year-old female with a PMH significant for HTN, HLD, reactive airway disease, and depression/anxiety. Placed on observation for r/o ACS. Chest pain Shortness of breath --troponin neg x 3; ACS ruled out --ECG: no acute ischemic changes --Echo: LV normal, EF 55-60%, impaired relaxation; RV normal; no significant valvular pathology --Stress mibi: normal lexiscan stress ECG; normal myocardial perfusion, EF 64%; Shortness of breath --CT chest: no pneumonia, no acute pathology; fluid collection right posterior mediastinum, 7.8cm x 3.2cm, increased since 2017, uncertain etiology --pre-post: sats 95% with flat surface ambulation on room air --outpatient followup with PCP/face painter Dr. Ferro Thyroid mass --seen previously in 2018; TSH wnl --outpatient monitoring Hypertension --continue triamterene/HCTZ Reactive airway disease --stable Depression/anxiety --continue citalopram Hypomagnesemia --replete Hypokalemia --replete COVID --05/06 swab pending FEN Fluids: PO intake adequate Electrolytes: replete as indicated Nutrition: low sodium DVT prophylaxis: subq heparin Physical therapy Dispo: continues to require telemetry observation; nuclear stress when COVID status established; full code. Minutes to complete discharge: 35 Discharge Summary Problems reviewed: Yes Reason For Visit: DYSPNEA ON EXERTION Current Active Problems Dyspnea on exertion (Acute) Condition: Improved - Instructions Diet, Activity, Other Instructions: It is recommended you follow up with your primary care provider, Dr. Ferro, within 1-2 weeks of your discharge. Return to the emergency department for any new or worsening symptoms. Referrals: Gino Ferro MD [Primary Care Provider] - 2 Weeks Disposition: HOME - Home Medications Comprehensive Discharge Medication List: Ambulatory Orders Atorvastatin Ca [Lipitor] 10 mg PO DAILY 05/06/20 Citalopram Hydrobromide [Citalopram HBr] 10 mg PO DAILY 05/06/20 This patient is new to me today: No Emergency Visit: Yes ED Registration Date: 05/06/20 Care time: The patient presented to the Emergency Department on the above date and was hospitalized for further evaluation of their emergent condition. Critical Care patient: No - Discharge Referral Referred to [facility] No
[2020-05-09 15:01] VITALS: PULSE 104
== END 2020-05-09 17:25 | disposition home or self-care (01) ==
LOC: FER 09:59 → INTOOBSV 12:25 → FM/S 12:25
PROVIDERS: ADMIT Internal Medicine; ATTEND Nurse Practitioner Acute Care
PROC: 3E033GC Introduction of Other Therapeutic Substance into Peripheral Vein, Percutaneous Approach (ICD-10-PCS; principal; 2020-05-06)
DX: R06.02 Shortness of breath (principal); I10 Essential (primary) hypertension; E78.5 Hyperlipidemia, unspecified; F41.8 Other specified anxiety disorders; Z95.5 Presence of coronary angioplasty implant and graft; E66.9 Obesity, unspecified; Z68.35 Body mass index [BMI] 35.0-35.9, adult; J45.909 Unspecified asthma, uncomplicated; E11.9 Type 2 diabetes mellitus without complications; Z29.9 Encounter for prophylactic measures, unspecified; Z87.891 Personal history of nicotine dependence; R79.9 Abnormal finding of blood chemistry, unspecified; R53.83 Other fatigue
CPT/HCPCS: 36415; 71045-TC-FY; 71250-TC; 78452-TC; 80053; 80061; 81003; 81015; 82550; 82803; 83605; 83721; 83735; 83880; 84443; 84484; 85025; 85610; 85730; 87077; 87081; 87086; 87186; 93005; 93017; 93306-TC; 96374; 97116-GP; 97161-GP; 99285-25; A9502; G0378; J1644; J2785; U0003

== ENCOUNTER 2020-11-20 08:22 | Day surgery (SDC) | payer BC ==
[2020-11-18 14:52] VITALS: BMI 34.3
[2020-11-20 10:05] VITALS: PULSE 79; TEMP 97.8
[2020-11-20 10:34] VITALS: BP 131/74
== END 2020-11-20 10:35 | disposition home or self-care (01) ==
LOC: FASU-ENDO 08:22
PROVIDERS: ATTEND Internal Medicine Gastroenterology
PROC: 0DB68ZX Excision of Stomach, Via Natural or Artificial Opening Endoscopic, Diagnostic (ICD-10-PCS; 2020-11-20)
PROC: 0DJD8ZZ Inspection of Lower Intestinal Tract, Via Natural or Artificial Opening Endoscopic (ICD-10-PCS; 2020-11-20)
PROC: 0DB98ZX Excision of Duodenum, Via Natural or Artificial Opening Endoscopic, Diagnostic (ICD-10-PCS; principal; 2020-11-20 09:24)
DX: R19.5 Other fecal abnormalities (principal); K57.30 Diverticulosis of large intestine without perforation or abscess without bleeding; K29.50 Unspecified chronic gastritis without bleeding
CPT/HCPCS: 88305-TC; 88342-TC

== ENCOUNTER 2023-03-09 03:58 | Day surgery (SDC) | payer BC ==
[2023-03-05 15:53] VITALS: BMI 34.3
[~2023-03-09 03:58] MED LIST: DEXAMETHASONE SOD PHOSPHATE 10 MG/1 ML VIAL IM ONE; IOHEXOL 180 MG/1 ML ML IJ ONE
[2023-03-09] MEDS ORDERED: LIDOCAINE HCL/PF 1% SDV 5ML VIAL ONE (08:18)
[2023-03-09] MEDS ORDERED: DEXAMETHASONE SOD PHOSPHATE 10 MG/1 ML VIAL ONE (08:19)
[2023-03-09] MEDS ORDERED: LIDOCAINE HCL 1% PRESERVATIVE FREE - 30ML VIAL IJ ONE (10:49)
[2023-03-09] MEDS ORDERED: IOHEXOL 180 MG/1 ML ML IJ ONE (10:52)
[2023-03-09] MEDS ORDERED: DEXAMETHASONE SOD PHOSPHATE 10 MG/1 ML VIAL IM ONE (10:56)
[2023-03-09] MEDS ORDERED: ACETAMINOPHEN 500 MG TABLET (FP) PO PRN (10:58)
[2023-03-09 11:26] VITALS: RESP 18; TEMP 97.8
[2023-03-09 11:47] VITALS: BP 147/81; PULSE 69
== END 2023-03-09 11:40 | disposition home or self-care (01) ==
LOC: JASU-SURG 03:58
PROVIDERS: ATTEND Pain Medicine Pain Medicine
PROC: 3E0R3BZ Introduction of Anesthetic Agent into Spinal Canal, Percutaneous Approach (ICD-10-PCS; 2023-03-09)
PROC: 3E0R33Z Introduction of Anti-inflammatory into Spinal Canal, Percutaneous Approach (ICD-10-PCS; principal; 2023-03-09 10:30)
DX: M54.16 Radiculopathy, lumbar region (principal)
CPT/HCPCS: 76000-TC-FY; J1100

== ENCOUNTER 2023-03-30 04:26 | Day surgery (SDC) | payer BC ==
[2023-03-29 09:44] VITALS: BMI 34.3
[~2023-03-30 04:26] MED LIST changes: -DEXAMETHASONE SOD PHOSPHATE 10 MG/1 ML VIAL IM ONE; -IOHEXOL 180 MG/1 ML ML IJ ONE; +LIDOCAINE HCL 1% PRESERVATIVE FREE - 30ML VIAL IJ ONE
[2023-03-30] MEDS ORDERED: LIDOCAINE HCL/PF 1% SDV 5ML VIAL ONE (07:34)
[2023-03-30] MEDS ORDERED: DEXAMETHASONE SOD PHOSPHATE 10 MG/1 ML VIAL ONE (07:36)
[2023-03-30 07:40] VITALS: BP 131/77; PULSE 65; RESP 20; TEMP 98.4
== END 2023-03-30 10:00 | disposition home or self-care (01) ==
LOC: JASU-SURG 04:26
PROVIDERS: ATTEND Pain Medicine Pain Medicine
DX: Z53.8 Procedure and treatment not carried out for other reasons (principal)
CPT/HCPCS: J1100

== ENCOUNTER 2023-03-30 09:48 | Emergency (ER) | payer BC ==
[2023-03-30 09:59] VITALS: BP 140/70; PULSE 68; RESP 16; TEMP 98; BMI 31.7
== END 2023-03-30 11:41 | disposition home or self-care (01) ==
LOC: JER 09:48
DX: I10 Essential (primary) hypertension (principal); M54.9 Dorsalgia, unspecified; F41.9 Anxiety disorder, unspecified
CPT/HCPCS: 93005; 93010; 99283-25

== ENCOUNTER 2023-04-02 03:57 | Day surgery (SDC) | payer BC ==
[2023-03-31 14:07] VITALS: BMI 17.2
[~2023-04-02 03:57] MED LIST changes: +DEXAMETHASONE SOD PHOSPHATE 10 MG/1 ML VIAL IM ONE; +IOHEXOL 180 MG/1 ML ML IJ ONE; +TRIAMCINOLONE ACET 40MG/1ML VIAL IM ONE
[2023-04-02] MEDS ORDERED: LIDOCAINE HCL/PF 1% SDV 5ML VIAL ONE ×2 (12:28→12:43)
[2023-04-02] MEDS ORDERED: DEXAMETHASONE SOD PHOSPHATE 10 MG/1 ML VIAL ONE (12:43)
[2023-04-02] MEDS ORDERED: BUPIVACAINE HCL/PF 0.75% 10 ML VIAL ONE (12:45)
[2023-04-02] MEDS ORDERED: BUPIVACAINE HCL/PF 0.5% (5MG/ML) 10 ML VIAL ONE (12:45)
[2023-04-02] MEDS ORDERED: LIDOCAINE HCL 1% PRESERVATIVE FREE - 30ML VIAL IJ ONE (12:53)
[2023-04-02] MEDS ORDERED: IOHEXOL 180 MG/1 ML ML IJ ONE (12:54)
[2023-04-02] MEDS ORDERED: TRIAMCINOLONE ACET 40MG/1ML VIAL IM ONE (12:55)
[2023-04-02] MEDS ORDERED: DEXAMETHASONE SOD PHOSPHATE 10 MG/1 ML VIAL IM ONE (12:55)
[2023-04-02 14:32] VITALS: RESP 18; TEMP 98.4
[2023-04-02 14:40] VITALS: BP 185/77; PULSE 60
== END 2023-04-02 14:15 | disposition home or self-care (01) ==
LOC: JASU-SURG 03:57
PROVIDERS: ATTEND Pain Medicine Pain Medicine
PROC: 3E0R3BZ Introduction of Anesthetic Agent into Spinal Canal, Percutaneous Approach (ICD-10-PCS; 2023-04-02)
PROC: 3E0R33Z Introduction of Anti-inflammatory into Spinal Canal, Percutaneous Approach (ICD-10-PCS; principal; 2023-04-02 13:00)
DX: M48.061 Spinal stenosis, lumbar region without neurogenic claudication (principal); M54.16 Radiculopathy, lumbar region
CPT/HCPCS: 76000-TC-FY; J1100